=== PATIENT | female | born 1955 | race Hispanic/Latino ===

== ENCOUNTER 2017-07-27 06:38 | Observation (INO) | payer OTHER ==
[2017-07-27 06:45] VITALS: BMI 19.2
--- NOTE | 2017-07-27 07:52 | ED PDOC ---
Upper Extremity Pain/Injury Time Seen by Provider: 07/27/17 07:26 Chief Complaint (Nursing): Upper Extremity Problem/Injury Chief Complaint (Provider): Left upper extremity injury History Per: Patient History/Exam Limitations: no limitations Onset/Duration Of Symptoms: Days (4) Current Symptoms Are (Timing): Still Present Additional History Per: Patient Additional Complaint(s): 61yo female with no past medical history, presents to ED for evaluation of left shoulder pain, present for the past 4 days after she tripped and fell, landing on her left side. Patient reports she has been taking Advil for her pain, with last dose last night and states mild relief of pain. She denies any weakness, numbness, tingling to her left upper extremity. Patient denies any new injuries or trauma. She offers no other medical complaints. Past Medical History Reviewed: Historical Data, Nursing Documentation, Vital Signs Vital Signs: Last Vital Signs Temp 97.3 F L 07/27/17 06:54 Pulse 74 07/27/17 06:54 Resp 16 07/27/17 06:54 BP 138/75 07/27/17 06:54 Pulse Ox 100 07/27/17 06:54 - Medical History PMH: No Chronic Diseases - Surgical History Surgical History: No Surg Hx - Family History Family History: States: No Known Family Hx - Living Arrangements Living Arrangements: With Family - Social History Current smoker - smoking cessation education provided: No Ex-Smoker (has not smoked in the last 12 months): No Alcohol: None Drugs: Denies - Allergies Allergies/Adverse Reactions: Allergies Allergy/AdvReac Type Severity Reaction Status Date / Time No Known Allergies Allergy Verified 07/27/17 06:54 Review of Systems ROS Statement: Except As Marked, All Systems Reviewed And Found Negative Musculoskeletal: Positive for: Shoulder Pain (left shoulder pain) Neurological: Negative for: Weakness (left upper extremity), Numbness (left upper extremity), Other (tingling in left upper extremity ) Physical Exam - Reviewed Nursing Documentation Reviewed: Yes Vital Signs Reviewed: Yes - Physical Exam Appears: Positive for: Non-toxic Head Exam: Positive for: ATRAUMATIC, NORMAL INSPECTION, NORMOCEPHALIC Skin: Positive for: Normal Color Eye Exam: Positive for: Normal appearance Neck: Positive for: Supple Cardiovascular/Chest: Positive for: Regular Rate, Rhythm Respiratory: Positive for: Normal Breath Sounds. Negative for: Respiratory Distress Gastrointestinal/Abdominal: Positive for: Normal Exam Back: Positive for: Normal Inspection Extremity: Positive for: Tenderness (left clavicle and shoulder), Swelling ( left clavicle and shoulder). Negative for: Normal ROM (Decreased ROM of Left upper extremity at shoulder due to pain) Neurologic/Psych: Positive for: Alert, Oriented. Negative for: Motor/Sensory Deficits - ECG O2 Sat by Pulse Oximetry: 100 (RA) Pulse Ox Interpretation: Normal Medical Decision Making Medical Decision Making: Time: 748 Impression: Left upper extremity and left shoulder pain Differential: Rule out left clavicle fracture, left shoulder fracture Plan: -- XR Left clavicle -- XR Left shoulder Reassess Time: 809 XR left clavicle reviewed by provider and indicated left distal clavicle fracture. XR left shoulder reviewed by provider, no fractures or dislocations noted. Call placed to Dr. Hernandez Time: [address] Hernandez who requests CT left shoulder. Also requesting patient to be admitted to hospitalist. Scribe Attestation: Documented by Lucy Grossman acting as a scribe for Ayan Mccollum MD. Provider Attestation: All medical record entries made by the Scribe were at my direction and personally dictated by me. I have reviewed the chart and agree that the record accurately reflects my personal performance of the history, physical exam, medical decision making, and the department course for this patient. I have also personally directed, reviewed, and agree with the discharge instructions and disposition. Disposition - Disposition Forms: [employer] (French)
[2017-07-27 08:42] LABS: BASO % 0.6 % (0.0-2.0); EOS % 0.9 % (0.0-4.0); HEMATOCRIT 39.3 % (34.0-47.0); LYMPH # 1.2 K/uL (1.0-4.3); LYMPH % 22.5 % (20.0-40.0); MEAN CELL VOLUME 95.8 fl (81.0-99.0); MEAN CORPUSCULAR HGB CONC 33.4 g/dL (33.0-37.0); MEAN PLATELET VOLUME 7.3 fl (7.2-11.7); MONO # 0.3 K/uL (0.0-0.8); NEUT # 3.7 K/uL (1.8-7.0); NRBC % 0.1 % (0.0-0.0); RED CELL DISTRIBUTION WIDTH 12.8 % (11.5-14.5); WHITE BLOOD COUNT 5.3 K/uL (4.8-10.8)
[2017-07-27 08:51] LABS: PARTIAL THROMBOPLASTIN TIME 26.4 Seconds (25.6-37.1)
--- NOTE | 2017-07-27 08:56 | RAD ---
PROCEDURE: Radiographs of the Left Shoulder HISTORY: shoulder injury COMPARISON: No prior. FINDINGS: BONES: Distal left clavicular fracture. JOINTS: Normal. Glenohumeral and acromioclavicular joints preserved. No osteoarthritis. SOFT TISSUES: Soft tissue swelling attests to the acuity of the fracture. OTHER FINDINGS: None. IMPRESSION: Acute distal left clavicular fracture. No acromioclavicular abnormalities are identified. Concordant results with the preliminary interpretation rendered by the emergency department physician procedure.
--- NOTE | 2017-07-27 08:57 | RAD ---
PROCEDURE: Radiographs of the left clavicle. HISTORY: left clavicle pain COMPARISON: None. FINDINGS: LEFT CLAVICLE: [place] distal left clavicular fracture. No fracture or focal lesion. JOINTS: Left acromioclavicular and glenohumeral joints are grossly unremarkable. SOFT TISSUES: Grossly unremarkable. OTHER FINDINGS: None. IMPRESSION: Acute fracture distal left clavicle. Preservation of acromioclavicular joint. Concordant results with the preliminary interpretation rendered by the emergency department physician procedure.
[2017-07-27 09:02] LABS: CARBON DIOXIDE 28 mmol/L (22-30); CHLORIDE 108 mmol/L (98-107); GFR AFRICAN-AMERICAN > 60; GLUCOSE,RANDOM 107 mg/dL (65-105); SODIUM 143 mmol/l (132-148)
--- NOTE | 2017-07-27 09:02 | RAD ---
HISTORY: Trauma COMPARISON: No prior. TECHNIQUE: Chest PA and lateral FINDINGS: LUNGS: No active pulmonary disease. PLEURA: No significant pleural effusion identified. No pneumothorax apparent. CARDIOVASCULAR: Normal. OSSEOUS STRUCTURES: Known fracture distal left clavicle. VISUALIZED UPPER ABDOMEN: Normal. OTHER FINDINGS: None. IMPRESSION: No active pulmonary disease.
[2017-07-27 09:06] LABS: BLOOD UREA NITROGEN 17 mg/dl (7-17); POTASSIUM 4.5 MMOL/L (3.6-5.0)
[2017-07-27 09:19] LABS: RBC URINE 2 /hpf (0-3); URINE BACTERIA RARE (<OCC); URINE BILIRUBIN NEGATIVE (NEGATIVE); URINE BLOOD NEGATIVE (NEGATIVE); URINE COLOR YELLOW (YELLOW); URINE GLUCOSE (UA) NEG (Normal); URINE KETONE NEGATIVE (NEGATIVE); URINE LEUKOCYTE ESTERASE NEG Leu/uL (Negative); URINE PROTEIN NEGATIVE (NEGATIVE); URINE UROBILINOGEN 0.2-1.0 mg/dL (0.2-1.0); WBC URINE < 1 /hpf (0-5)
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
--- NOTE | 2017-07-27 11:06 | CT ---
Indication: Left clavicle fracture Limited left upper extremity CT without IV contrast (left clavicle) Comparison: Left clavicle and left shoulder radiographs performed 07/27/17. Two view chest x-ray performed 07/27/17 Technique: Noncontrast axial images were obtained on limited left upper extremity. Sagittal coronal reformatted images were generated and reviewed. This CT exam was performed using 1 or more of the following dose reduction techniques: Automated exposure control, adjustment of the MAA and/or kV according to patient size, and/or use of iterative reconstruction technique. Radiation dose: 119.41 mg cm Findings: Comminuted mildly displaced distal left clavicle fracture. The remainder of the visualized osseous structures appear intact. Soft tissue swelling. The visualized thyroid gland appears unremarkable. Included lung tolentino appear clear without focal consolidation, pneumothorax, or pleural effusion. Impression: Comminuted mildly displaced distal left clavicle fracture and associated soft tissue swelling.
[2017-07-27] MEDS ORDERED: Propofol 10 mg/ml Inj (20 ML) ONE (12:37)
[2017-07-27] MEDS ORDERED: Lidocaine 4% (Laryng-O-Jet) Kit MM ONE (12:37)
[2017-07-27] MEDS ORDERED: Succinylcholine 200 mg/10 ml Inj IV ONE (12:37)
[2017-07-27] MEDS ORDERED: SENSORCAINE 0.5% W/EPINEPHRINE 50ML MDV IJ ONE (12:45)
[2017-07-27] MEDS ORDERED: Lidocaine 2% Inj (20ml) ONE (12:45)
[2017-07-27] MEDS ORDERED: Midazolam 2 MG/2 ML VIAL ONE (13:07)
[2017-07-27] MEDS ORDERED: Bupivacaine 0.5% Inj(30mL) ONE (13:50)
[2017-07-27] MEDS ORDERED: Absorbable Gelatin Sponge Size 100 ONE (13:50)
[2017-07-27] MEDS ORDERED: ceFAZolin IV 1 gm in Dextrose 1 GM/50 ML BAG IVPB ONE (13:50)
[2017-07-27] MEDS ORDERED: Thrombin Topical 5,000 IU Spray Kit ONE (13:50)
[2017-07-27] MEDS ORDERED: Lactated Ringer's 1,000 ML IV ONE (14:25)
[2017-07-27] MEDS ORDERED: Rocuronium 10 mg/ml (5 ml) ONE (14:37)
[2017-07-27] MEDS ORDERED: EPINEPHrine 1 mg/ml (1:1000) Inj ONE (14:44)
[2017-07-27] MEDS ORDERED: Dexamethasone 4 mg/1 ml ONE (16:16)
[2017-07-27] MEDS ORDERED: Neostigmine Methylsulfate 2 MG/2 ML ML IV ONE (16:24)
[2017-07-27] MEDS ORDERED: HYDROmorphone 0.5 mg/0.5 ml ISec IVP PRN (16:55)
--- NOTE | 2017-07-27 16:55 | PCM.ANESB1 ---
Interscalene Block - Brachial Plexus Date of Procedure: 07/27/17 Anesthesiologist: Julio Cesar Pre-Procedure Diagnosis: Left clavicular fracture Post-Procedure Diagnosis: Same Procedure Performed: Interscalene Block of Brachial Plexus Left - Procedure Interscalene Block of Brachial Plexus: This procedure was explained to the patient that it is for post-operative pain management. Consent was obtained after a thorough discussion with the patient regarding the benefits and possible complications of local anesthetic block of the Brachial Plexus at the Interscalene area. The patient was brought to the Operating Room and standard monitors were applied. Time out was held with the circulating nurse to confirm the correct surgery and appropriate block. After applying Oxygen by nasal cannula and administering IV Sedation, the patient's head was gently rotated away from the ___left___operative shoulder and the anterior scalene groove was carefully palpated. The ultrasound transducer was then applied to the skin in the transverse plane and the brachial plexus was visualized lateral to the carotid artery and in between the anterior and middle scalene muscles. After identification,the anterior lateral portion of the neck was prepped with Betadine solution three times and Lidocaine 1% was injected subcutaneously for topical analgesia. At this point, a # 22 gauge Stimuplex 2 inches insulated needle was inserted into the interscalene groove and directed in a caudal and midline direction. The needle was inserted lateral to the ultrasound transducer in-plane towards the brachial plexus in a [id number] direction. Needle advancement was performed carefully under direct ultrasound visualization. Nerve stimulator was used and twitched of the affected extremity including the hand brachialis muscles, biceps and the deltoid was obtained at a current of __0.4___MA. After repeated negative aspiration,_20___cc of__.5%___,____marcaine were injected. Under ultrasound guidance the local anesthetics were observed surrounding the roots of the brachial plexus. The needle was removed intact and sterile dressing was applied. The patient had stable vital signs, was conscious and in no apparent distress. The patient tolerated the interscalene block of the bracheal plexus well with stable vital signs and was prepared for subsequent surgery.
[2017-07-27 17:14] VITALS: RESP 18
--- NOTE | 2017-07-27 17:19 | PCM.SURG1 ---
Surgeon's Initial Post Op Note - Surgeon's Notes Surgeon: Mary Hot Knife Foxing Cutter: SELAM Calderon Type of Anesthesia: General Endo, Block Regional Anesthesia Administered By: DR Jordy Harrell Pre-Operative Diagnosis: Severely displaced/comminuted distal clavle fx Operative Findings: as above- severely dispalced/comminuted distal clavicle fx. A/C joint traumatic injury(capsular rupture) Post-Operative Diagnosis: as above Operation Performed: ORIF displaced/comminuted distal Neer 2 type clavicle fx. primary repair L A/C joint. allograft bone graft. positioningof fluoro/ interpretation of video images. applx shoulder immobilizer Specimen/Specimens Removed: bone Estimated Blood Loss: EBL {In ML}: 15 Blood Products Given: N/A Drains Used: No Drains Post-Op Condition: Good Date of Surgery/Procedure: 07/27/17 Time of Surgery/Procedure: 15:50 (time in room/anaetshesia induction time 1420)
[2017-07-27] MEDS ORDERED: Oxycodone/Acetaminophen 5/325 mg Tab PO PRN (18:17)
[2017-07-27 18:32] VITALS: BP 119/72; PULSE 80; TEMP 98.1; O2SAT 98
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
--- NOTE | 2017-07-28 09:58 | CARD ---
APPROVED REPORT EKG Measurement Heart [id number] <Conclusion> Normal sinus rhythm Normal ECG
--- NOTE | 2017-07-28 11:54 | RAD ---
PROCEDURE: Radiographs of the Left Shoulder HISTORY: s/p ORIF left distal clavicle with C-arm COMPARISON: Left clavicle radiographs performed 07/27/17 FINDINGS: Ernst single portable view. BONES: Postsurgical fixation of the left clavicle with metallic plate and screws. No acute displaced fracture. The distal clavicle and underlying ribs appear intact. JOINTS: Glenohumeral joint space narrowing. Alignment cannot be adequately assessed in the absence of orthogonal views. SOFT TISSUES: Soft tissue swelling. IMPRESSION: Postsurgical fixation of left clavicle fracture with metallic plate and screws.
--- NOTE | 2017-07-29 12:13 | RAD ---
PROCEDURE: Fluoroscopy over 1 hour HISTORY: LEFT CLAVICLE ORIF COMPARISON: None TECHNIQUE: Standard protocol for this study/examination. FINDINGS: Total fluoroscopic time (continuous mode) utilized during the procedure: 13.8 seconds. Total exam DLP: (mGy): 0.91. IMPRESSION: Fluoroscopy utilization over 1 hour.
== END 2017-07-27 22:00 | disposition home or self-care (01) ==
LOC: H.ER 06:38 → H.ERHOLD 08:45 → H.MEDSURG1 10:38
PROVIDERS: ADMIT Student in an Organized Health Care Education/Training Program; ATTEND Student in an Organized Health Care Education/Training Program
DX: S42.032A Displaced fracture of lateral end of left clavicle, initial encounter for closed fracture (principal); W01.0XXA Fall on same level from slipping, tripping and stumbling without subsequent striking against object, initial encounter; Y93.9 Activity, unspecified; Y92.9 Unspecified place or not applicable; Y99.9 Unspecified external cause status
CPT/HCPCS: 23515; 64415; 71020; 73000; 73020; 73030; 73200; 76001; 80048; 81003; 85025; 85610; 85730; 86850; 86900; 86920; 93005; 99284; C1713; C1769; FLUOR; G0378; J0171; J0330; J0360; J0690; J1100; J2250; J2405; J2704; J2710; J3010; J7030; J7120; L3650